=== PATIENT | male | born 1990 | race Hispanic/Latino ===

== ENCOUNTER 2025-01-12 16:33 | Emergency (ER) | payer SELFPAY | END 2025-01-12 18:55 | disposition home or self-care (01) | LOC: ERS 16:33 | DX: J02.9 Acute pharyngitis, unspecified (principal); F43.0 Acute stress reaction; F41.9 Anxiety disorder, unspecified; R29.700 NIHSS score 0 | CPT/HCPCS: 87070; 87081; 87430; 99284 ==